=== PATIENT | female | born 1955 | race Caucasian/White ===

== ENCOUNTER 2022-11-28 15:48 | Outpatient (CLI) | payer OTHER, MEDICAID | END 2022-11-28 15:49 | disposition home or self-care (01) | LOC: CSHLAB 15:48 | PROVIDERS: ATTEND Student in an Organized Health Care Education/Training Program | DX: Z01.818 Encounter for other preprocedural examination (principal); N39.46 Mixed incontinence | CPT/HCPCS: 80048; 80076; 85027; 86850; 86900; 86901; 93005; 93010 ==

== ENCOUNTER 2025-01-15 09:54 | Outpatient (CLI) | payer OTHER | END 2025-01-15 09:55 | disposition home or self-care (01) | LOC: CSHMRI 09:54 | PROVIDERS: ATTEND Internal Medicine | DX: M47.26 Other spondylosis with radiculopathy, lumbar region (principal); Z98.890 Other specified postprocedural states | CPT/HCPCS: 72148 ==